=== PATIENT | female | born 1995 | race Caucasian/White ===

== ENCOUNTER 2020-09-21 08:00 | Outpatient (CLI) | payer OTHER ==
[2020-09-21 16:37] LABS: MUDS CUTOFF CONCENTRATIONS CUTOFF CONC BELOW:
[2020-09-21 17:06] LABS: AMPHETAMINE SCREEN,URINE NEGATIVE (NEGATIVE); BENZODIAZEPINES SCREEN, URINE NEGATIVE (NEGATIVE); BILIRUBIN,URINE NEGATIVE (NEGATIVE); COCAINE SCREEN URINE NEGATIVE (NEGATIVE); GLUCOSE, URINE (UA) NEGATIVE (NEGATIVE); KETONES,URINE (UA) NEGATIVE (NEGATIVE); LEUKOCYTE ESTERASE, URINE SMALL (NEGATIVE); METHADONE SCREEN, URINE NEGATIVE (NEGATIVE); METHAMPHETAMINES SCREEN, URINE NEGATIVE (NEGATIVE); NITRITE,URINE NEGATIVE (NEGATIVE); OCCULT BLOOD,URINE NEGATIVE (NEGATIVE); OPIATE SCREEN, URINE NEGATIVE (NEGATIVE); OXYCODONE SCREEN, URINE NEGATIVE (NEGATIVE); PH,URINE 7.5 PH (5.0-7.5); PROPOXYPHENE SCREEN, URINE NEGATIVE (NEGATIVE); PROTEIN,URINE NEGATIVE (NEGATIVE); TRICYCLIC ANTIDEPRESSANT,URINE NEGATIVE (NEGATIVE); UROBILINOGEN,URINE 0.2 (NORMAL) E.U./dL (NORMAL)
[2020-09-21 17:07] LABS: CLARITY,URINE CLEAR (CLEAR)
[2020-09-21 17:27] LABS: BACTERIA,URINE None Seen /HPF (None Seen); RBC,URINE 0-5 /HPF (0-5); SQUAMOUS EPITHELIAL CELL,UR MOD Squamous (<= Few)
== END 2020-09-21 23:59 | disposition home or self-care (01) ==
LOC: LAB.R 08:00
PROVIDERS: ATTEND Obstetrics & Gynecology
DX: Z32.01 Encounter for pregnancy test, result positive (principal)
CPT/HCPCS: 80306; 81001; 87086

== ENCOUNTER 2020-09-21 11:13 | Outpatient (CLI) | payer OTHER ==
--- NOTE | 2020-09-21 12:17 | Ultrasound Report ---
PROCEDURE: OB First Trimester INDICATIONS: POS PREG TEST, LATE CARE OUTSIDE/PRIOR DATING DATA: Last menstrual period (LMP): 07/03/2020. LMP-based estimated date of delivery (ESTELA): 04/09/2021. First dating scan (date and location): 09/21/2020. Estimated date of delivery (ESTELA) from first dating scan: 04/08/2021. TECHNIQUE: Real-time scanning was performed of the fetus and maternal pelvic organs, with image documentation. COMPARISON: None FINDINGS: Embryo: Mean gestational sac diameter is 5.5 cm corresponding to 11 weeks 3 days. [place]-rump length is 4.8 cm corresponding to 11 weeks 4 days. Composite ultrasound age is 11 weeks 4 days. Measurement variability in dating: +/- 4 weeks by LMP, +/- 7 days by mean sac diameter (use before 6 weeks gestation if crown-rump length not able to be measured), +/- 5 days by crown-rump length (6-12 weeks gestation). Maternal organs: The right ovary has a corpus luteal cyst measuring 1.9 x 1.9 x 1.8 cm. Limited image s through the kidneys demonstrate no hydronephrosis. The cervix is closed IMPRESSION: 1. Live intrauterine with a composite ultrasound age of 11 weeks 4 days. 2. A right corpus luteal cyst cyst measures 1.9 x 1.9 x 1.8 cm. Reviewed by: Seymour Damon on 09/21/2020 12:16 PM PST Approved by: Seymour Damon on 09/21/2020 12:16 PM PST Station ID: [id number]
== END 2020-09-21 11:14 | disposition home or self-care (01) ==
LOC: DI 11:13
PROVIDERS: ATTEND Obstetrics & Gynecology
DX: O34.81 Maternal care for other abnormalities of pelvic organs, first trimester (principal); N83.11 Corpus luteum cyst of right ovary; Z3A.11 11 weeks gestation of pregnancy

== ENCOUNTER 2020-09-28 08:00 | Outpatient (CLI) | payer OTHER | END 2020-09-28 08:01 | disposition home or self-care (01) | LOC: LAB.R 08:00 | PROVIDERS: ATTEND Nurse Practitioner Obstetrics & Gynecology | DX: O23.41 Unspecified infection of urinary tract in pregnancy, first trimester (principal) | CPT/HCPCS: 87086 ==

== ENCOUNTER 2020-10-17 08:00 | Outpatient (CLI) | payer OTHER ==
[2020-10-17 22:06] LABS: TRICHOMONAS VAGINALIS DNA NEGATIVE (NEGATIVE)
== END 2020-10-17 23:59 | disposition home or self-care (01) ==
LOC: LAB.R 08:00
PROVIDERS: ATTEND Nurse Practitioner Obstetrics & Gynecology
DX: Z11.3 Encounter for screening for infections with a predominantly sexual mode of transmission (principal)
CPT/HCPCS: 87491; 87591; 87661

== ENCOUNTER 2020-12-26 08:30 | Outpatient (CLI) | payer OTHER ==
--- NOTE | 2020-12-26 16:48 | Ultrasound Report ---
PROCEDURE: OB Detailed Eval INDICATIONS: SCREENING OUTSIDE/PRIOR DATING DATA: Last menstrual period (LMP): 07/03/2020. LMP-based estimated date of delivery (ESTELA): 04/09/2021. First dating scan (date and location): 09/21/2020. Estimated date of delivery (ESTELA) from first dating scan: 04/08/2021. TECHNIQUE: Real-time scanning was performed of the fetus, with image documentation and biometric measurements. Endovaginal scanning: No COMPARISON: Prior OB ultrasound dated 09/21/2020. FINDINGS: General: A single living intrauterine gestation is present. Presentation: Breech Placenta: Placental position is posterior, without previa. Amniotic fluid index: 17.5 cm, normal for gestational age. heart rate: 132 beats per minute. Maternal cervical canal: 5.0 cm long; normal length is 2.5 cm or more. biometrics: Biparietal diameter: 26 weeks Head circumference: 26 weeks 4 days Abdominal circumference: 25 weeks 4 days Femur length: 24 weeks 4 days Estimated gestational age from initial scan: 25 weeks 1 day Composite gestational age from present scan: 25 weeks 4 days Estimated weight and percentile: 7 98 g, 40th percentile Measurement variability in biometric dating: +/- 10 days from 12-20 weeks gestation, +/- 2 weeks from 20-30 weeks gestation, +/- 3 weeks at 30 weeks gestation or later. Anatomic survey: Neuro: Ventricles are normal at less than 10 mm. Cisterna magna is normal at 3-11 mm. Cerebellum i s normal in size and morphology. Nuchal skin fold: Normal at less than 6 mm between 14 and 20 weeks gestational age. Face: Nose and lips, facial profile are normal. Spine: No evidence for spina bifida. Heart: 4-chambered heart is present, with normal ventricular outflow tracts. Diaphragm: Diaphragm is intact. Stomach: Left-sided stomach is present. Kidneys: No hydronephrosis. Normal is less than 5 mm in 2nd trimester, less than 7 mm in 3rd trimester. Cord: 3 vessel cord has orthotopic insertion. Bladder: Normal in size. Extremities: All 4 extremities are visualized. IMPRESSION: Single living IUP redemonstrated and interval growth is normal with estimated weight 48 percent ile. Normal anatomic survey. Reviewed by: MACY Lloyd on 12/26/2020 4:47 PM PST Approved by: Carlito Reed MD on 12/26/2020 4:47 PM PST Station ID: [id number]
== END 2020-12-26 08:31 | disposition home or self-care (01) ==
LOC: DI 08:30
PROVIDERS: ATTEND Nurse Practitioner Obstetrics & Gynecology
DX: Z36.89 Encounter for other specified antenatal screening (principal)

== ENCOUNTER 2021-01-04 08:50 | Outpatient (CLI) | payer OTHER ==
[2021-01-04 09:58] LABS: HCT - HEMATOCRIT 31.8 % (37.0-47.0); HGB - HEMOGLOBIN 10.8 g/dL (12.0-16.0); MEAN CORPUSCULAR HEMOGLOBIN 32.6 pg (27.0-31.0); MEAN CORPUSCULAR VOLUME 96.1 fL (81.0-99.0); MEAN PLATELET VOLUME 9.2 fL (7.9-10.8); RED BLOOD COUNT 3.31 10^6/uL (4.20-5.40); RED CELL DISTRIBUTION WIDTH 12.6 % (12.0-15.0); WHITE BLOOD COUNT 7.5 x10^3/uL (4.8-10.8)
[2021-01-05 07:16] LABS: HIV AG/AB 4TH GEN NON-REACTIVE (NON-REACTIVE)
[2021-01-05 14:26] LABS: HEPATITIS C ANTIBODY NON-REACTIVE (NON-REACTIVE)
== END 2021-01-04 23:59 | disposition home or self-care (01) ==
LOC: LAB 08:50
PROVIDERS: ATTEND Advanced Practice Midwife
DX: Z34.90 Encounter for supervision of normal pregnancy, unspecified, unspecified trimester (principal); Z36.89 Encounter for other specified antenatal screening
CPT/HCPCS: 36415; 82950; 85027; 86803; 87389

== ENCOUNTER 2021-01-16 08:00 | Outpatient (CLI) | payer OTHER ==
[2021-01-16 20:58] LABS: BACTERIAL VAGINOSIS DNA POSITIVE (NEGATIVE); CANDIDA GLABRATA DNA NEGATIVE (NEGATIVE); CANDIDA GROUP DNA POSITIVE (NEGATIVE); CANDIDA KRUSEI DNA NEGATIVE (NEGATIVE); TRICHOMONAS VAGINALIS DNA NEGATIVE (NEGATIVE)
== END 2021-01-16 23:59 | disposition home or self-care (01) ==
LOC: LAB.R 08:00
PROVIDERS: ATTEND Nurse Practitioner Obstetrics & Gynecology
DX: N76.0 Acute vaginitis (principal)
CPT/HCPCS: 87661; 87801

== ENCOUNTER 2021-02-08 08:00 | Outpatient (CLI) | payer OTHER ==
[2021-02-08 23:22] LABS: BACTERIAL VAGINOSIS DNA NEGATIVE (NEGATIVE); CANDIDA GLABRATA DNA NEGATIVE (NEGATIVE); CANDIDA GROUP DNA POSITIVE (NEGATIVE); CANDIDA KRUSEI DNA NEGATIVE (NEGATIVE); TRICHOMONAS VAGINALIS DNA NEGATIVE (NEGATIVE)
== END 2021-02-08 23:59 | disposition home or self-care (01) ==
LOC: LAB.R 08:00
PROVIDERS: ATTEND Nurse Practitioner Obstetrics & Gynecology
DX: L29.8 Other pruritus (principal)
CPT/HCPCS: 87661; 87801

== ENCOUNTER 2021-02-13 11:44 | Outpatient (CLI) | payer OTHER ==
[2021-02-13 12:01] LABS: HCT - HEMATOCRIT 32.7 % (37.0-47.0); HGB - HEMOGLOBIN 11.3 g/dL (12.0-16.0); MEAN CORPUSCULAR HEMOGLOBIN 32.4 pg (27.0-31.0); MEAN CORPUSCULAR HGB CONC 34.6 g/dL (32.0-36.0); MEAN CORPUSCULAR VOLUME 93.7 fL (81.0-99.0); MEAN PLATELET VOLUME 9.4 fL (7.9-10.8); RED BLOOD COUNT 3.49 10^6/uL (4.20-5.40); RED CELL DISTRIBUTION WIDTH 12.9 % (12.0-15.0); WHITE BLOOD COUNT 8.5 x10^3/uL (4.8-10.8)
== END 2021-02-13 11:45 | disposition home or self-care (01) ==
LOC: LAB 11:44
PROVIDERS: ATTEND Nurse Practitioner Obstetrics & Gynecology
DX: Z01.84 Encounter for antibody response examination (principal); O99.019 Anemia complicating pregnancy, unspecified trimester; Z87.09 Personal history of other diseases of the respiratory system
CPT/HCPCS: 36415; 85027; 86769

== ENCOUNTER 2021-03-07 03:17 | Outpatient (CLI) | payer OTHER ==
[2021-03-07 03:33] VITALS: BP 114/78
--- NOTE | 2021-03-07 04:28 | Labor Flowsheet ---
Labor Flowsheet Datetime Report Generated by CPN: 03/07/2021 04:28 Datetime: 03/07/2021 03:32 VITAL SIGNS NBP Sys/Ronna/Mean (mmHg): 114 : 78 : 86 Pulse: 78
--- NOTE | 2021-03-07 07:15 | PROVIDER PROGRESS NOTE ---
- HPI Chief Complaint: Labor Current : Current EDU 04/09/21 Gestation 35 Weeks and 2 Days 2 Para 0 Vital Signs Temperature 37.1 C 03/07/21 03:31 Heart Rate 78 03/07/21 03:31 Respiratory Rate 19 03/07/21 03:31 Blood Pressure 114/78 03/07/21 03:31 O2 Saturation 100 03/07/21 03:31 Temperature 37.1 C 03/07/21 03:31 Heart Rate 78 03/07/21 03:31 Respiratory Rate 19 03/07/21 03:31 Blood Pressure 114/78 03/07/21 03:31 O2 Saturation 100 03/07/21 03:31 - Procedures OB Procedure Performed: NST Diagnosis/Indication for NST: Other NST Procedure: NST Procedure Start Date 03/07/21 Start Time 03:28 Stop Time 04:00 Vibroacoustic Stimulation Used No Patient States Movement Yes Service Date of procedure: 03/07/21 - Plan Plan: Jana is a 25yo @ 35.2wks gestation by LMP c/w 11.3wk U/S who presents [facility] with c/o contractions which began at approximately 10:00pm last night. She describes them as "a Richard horse in my back" with tight abdomen. She has not been timing them and she feels like maybe they are occurring every 10-20 minutes. She was able to get some sleep last night however woke up at 2:00am and was still experiencing this sensation and wanted to come in to be sure she is not in labor. She denies vaginal bleeding or leakage of fluid. She denies urinary symptoms and reports regular bowel movement yesterday afternoon. O: Normotensive NST performed 03/07/2021 NST read 03/07/2021 NST reactive. FHR baseline 130s, moderate variability, + accels, no decels Contractions palpate mild every 10-15 minutes with soft resting tone. Mild uterine irritability. Pt talking through contractions and when they are noted on tocometry she reports movement rather than pain. SVE closed/thick/high A: 25yo @ 35.2wks gestation by LMP c/w 11.3wk U/S False labor <37wks gestation P: Reviewed PTL precautions and warning s/sx and when to present. Pt has emergency contact number. Pt verbalized understanding and agrees to above plan. She denies further questions or concerns at this time. FINAL DIAGNOSIS: False labor <37weeks gestation
== END 2021-03-07 04:23 | disposition home or self-care (01) ==
LOC: WFO 03:17 → FBP 03:18 → WFO 04:23
PROVIDERS: ATTEND Nurse Practitioner Obstetrics & Gynecology
DX: O60.03 Preterm labor without delivery, third trimester (principal); Z3A.35 35 weeks gestation of pregnancy
CPT/HCPCS: 59025; 99213

== ENCOUNTER 2021-04-04 17:11 | Inpatient (IN) | payer OTHER ==
[2021-04-04 18:20] LABS: RUPTURE OF MEMBRANES PLUS POSITIVE (NEGATIVE)
[2021-04-04] MEDS ORDERED: AMPICILLIN 2 GM in SODIUM CHLORIDE 0.9% MINIBAG 100 ML IV ONE (19:19)
[2021-04-04] MEDS ORDERED: SODIUM CHLORIDE FLUSH 0.9% 10 ML SYRINGE IVP PRN (19:19)
[2021-04-04] MEDS ORDERED: OXYTOCIN/SODIUM CHLORIDE 500 ML IV PRN (19:19)
[2021-04-04] MEDS ORDERED: TRANEXAMIC ACID IN NACL 1,000 MG/100 ML BAG IV PRN (19:19)
[2021-04-04] MEDS ORDERED: LIDOCAINE-MPF 1% 30 ML VIAL ID PRN (19:19)
[2021-04-04] MEDS ORDERED: miSOPROStoL 200 MCG TABLET BC PRN (19:19)
[2021-04-04] MEDS ORDERED: OXYTOCIN 10 UNIT/ML VIAL IM PRN (19:19)
[2021-04-04] MEDS ORDERED: CARBOPROST TROMETHAMINE 250 MCG/ML AMP IM PRN (19:19)
[2021-04-04] MEDS ORDERED: METHYLERGONOVINE 0.2 MG/ML VIAL IM PRN (19:19)
[2021-04-04] MEDS ORDERED: OXYTOCIN/SODIUM CHLORIDE 500 ML IV SCH (19:25)
[2021-04-04 19:31] LABS: BASOPHILS % (AUTO) 0.3 %; EOSINOPHILS # (AUTO) 0.1 10^3/uL (0.0-0.7); EOSINOPHILS % (AUTO) 0.7 %; HCT - HEMATOCRIT 34.5 % (37.0-47.0); HGB - HEMOGLOBIN 11.7 g/dL (12.0-16.0); LYMPHOCYTES # (AUTO) 2.3 10^3/uL (1.5-3.5); LYMPHOCYTES % (AUTO) 25.8 %; MEAN CORPUSCULAR HEMOGLOBIN 31.2 pg (27.0-31.0); MEAN CORPUSCULAR HGB CONC 33.9 g/dL (32.0-36.0); MEAN PLATELET VOLUME 10.4 fL (7.9-10.8); MONOCYTES # (AUTO) 0.7 10^3/uL (0.0-1.0); MONOCYTES % (AUTO) 7.5 %; NEUTROPHILS # (AUTO) 5.8 10^3/uL (1.5-6.6); NEUTROPHILS % (AUTO) 65.1 %; PLT - PLATELET COUNT 234 10^3/uL (130-450); RED BLOOD COUNT 3.75 10^6/uL (4.20-5.40); RED CELL DISTRIBUTION WIDTH 13.6 % (12.0-15.0); WHITE BLOOD COUNT 8.9 x10^3/uL (4.8-10.8)
--- NOTE | 2021-04-04 20:04 | HISTORY & PHYSICAL EXAMINATION ---
Admit History - Visit Reason Visit Reason: Membranes rupture - : 2 Parity: 0 Premature: 0 Ectopic: 0 : 1 Care: positive: [facility] Risk/History: positive: None Complications This : positive: None Smoking Status: Never smoker - Mother's Labs Mother's Blood Type: positive: A Mother's RH: positive: Positive GBS: positive: Group B Strep Positive Rubella Status: positive: Immune Meds/Allgy - Allergies Allergies/Adverse Reactions: Allergies Allergy/AdvReac Type Severity Reaction Status Date / Time No Known Drug Allergies Allergy Verified 04/04/21 18:51 Review of Systems - Constitutional Constitutional: denies: Fatigue, Fever, Chills - Eyes Eyes: denies: Blurred vision, Spots in vision, Dipolpia - Cardiovascular Cariovascular: denies: Irregular heart rate, Palpitations, Chest pain, Edema - Respiratory Respiratory: denies: Cough, SOB at rest - Gastrointestinal Gastrointestinal: denies: Constipation, Diarrhea, Change in bowel habits - Integumentary Integumentary: denies: Rash, Pruritis - Neurological Neurological: denies: Headache Physical - Abdominal Exam Vital Signs: Temp Pulse Resp BP Pulse Ox 36.5 C 79 18 139/77 H 100 04/04/21 18:42 04/04/21 17:20 04/04/21 17:20 04/04/21 17:20 04/04/21 17:20 Contraction Frequency (min/apart): 5-8 Contraction Intensity: positive: Mild Uterine Resting Tone: positive: Soft - Monitoring Heart Rate Baseline: 120 Strip Review: positive: Category I - Presentation Presentation: positive: Vertex - Vaginal Exam Membranes: positive: Membranes ruptured Dilation (in cm): 1 Effacement (%): 50 Station: positive: -3 Cervical Position: positive: Posterior - Speculum Exam Speculum Exam Performed: positive: No Findings: positive: Other - Other Notes Labor Progress Note/Additional Text: HPI: Jana is a 25yo @ 39.2wks gestation by LMP c/w 11.3wk U/S who presents to [facility] with c/o vaginal leakage of clear fluid that occurred at 1400 this afternoon. She was instructed to present after calling the office and states it took her 2 hours to get home. Upon arrival she was noted to have moist pad and a ROM plus was collected and returned positive. She reports mild contractions intermittently for the past several days. She has not noted an increased in frequency or intensity of contractions after her water broke this afternoon. She denies vaginal bleeding and reports +FM. She is supported by her Jensen today. She has been a patient of [facility] through the duration of her which has remained uncomplicated with the exception of mild anemia for which she takes daily iron supplementation, and GBS positive in urine in the first trimester and she will be treated upon admission per protocol. She will be admitted to [facility] for active management of premature rupture of membranes at term. Dating criteria: LMP 07/03/2020 Initial ultrasound @ 11.3wks c/w LMP dating Serial exams - agree OB Hx: G1: 12/2019 SAB @6wks gestation G2: Current Medications: PNV; FeSO4 bid Allergies: NKDA PMHx: no significant Surgical Hx: none Social Hx: Never smoker. No ETOH or IVDA. Jensen Family Hx: HTN - MGM, MGF, PGM, PGF; Arthritis - MGM, PGM; Breast cancer - MGM; Stroke/CVA - PGF course: Initial U/S: 09/21/2020 @ 11.3wks c/w LMP dating A pos/Rubella immune VZV: immune Genetic testing: was considering, missed window due to being in [place] and not seeking care. FAS: WNL. Posterior placenta, no previa. 3VC. EFW 40%tile. Glucola - 87 Influenza: received at outside clinic COVID vaxx: #2 on 03/19/2021 TDAP- 01/16/2021 GBS POSITIVE via urine in first trimester - IPAP in labor indicated. HSV: denies in self and partner Breast pump Rx provided MOD: Anticipate ; Jensen. Boy??? [place] gender pp contraception: was previously using fertility awareness with abstinence and withdrawal- discussed risks of this method. Understands. pap: 2018-WNL per pt- denies hx abnormal. Physical Exam: Normocephalic, atraumatic Heart RRR w/o M/G/R Lungs CTAB Abdomen gravid, soft, nontender EFW 3300g FHR baseline 120, moderate variability, + accels no decels Contractions palpate mild every 4-8 minutes with soft resting tone. SVE 1/50/-3, posterior, medium. Vertex. ROM plus POSITIVE Bilateral LE's no edema Mood is good Assessment: 25yo @ 39.2wks gestation by LMP c/w 11.3wk U/S Premature rupture of membranes at term GBS positive FHR Category I Plan: Admit for active management. Initiate pitocin for induction of labor per protocol. Continuous monitoring. Initiate ampicillin for GBS prophylaxis per protocol. Jacuzzi PRN. Nitrous oxide PRN. Epidural per maternal request. Anticipate . Pt, , and labor RN verbalized understanding and agree to above plan. They deny further questions or concerns at this time.
[2021-04-05] MEDS: fentaNYL 100 MCG/2 ML VIAL IVP PRN ×3 (02:10→04:36)
[2021-04-05] MEDS: ONDANSETRON 4 MG/2 ML VIAL IVP PRN ×3 (02:10→18:09)
[2021-04-05] MEDS: LACTATED RINGERS 1,000 ML IV SCH ×2 (04:00→12:29)
[2021-04-05] MEDS ORDERED: ROPIVACAINE 0.2% 200 MG/100 ML BAG EP ONE (04:42)
[2021-04-05] MEDS: AMPICILLIN 1 GM in SODIUM CHLORIDE 0.9% MINIBAG 100 ML IV SCH ×4 (05:12→17:17)
[2021-04-05] MEDS ORDERED: ONDANSETRON 4 MG/2 ML VIAL IVP PRN (05:47)
[2021-04-05] MEDS ORDERED: diphenhydrAMINE INJ 50 MG/ML VIAL IVP PRN (05:47)
[2021-04-05] MEDS ORDERED: NALBUPHINE 10 MG/ML AMP IVP PRN (05:47)
[2021-04-05] MEDS ORDERED: NALOXONE 0.4 MG/ML VIAL IVP PRN (05:47)
[2021-04-05] MEDS ORDERED: ROPIVACAINE 0.2% 200 MG/100 ML BAG EP PRN (05:47)
[2021-04-05] MEDS ORDERED: METOCLOPRAMIDE 10 MG/2 ML VIAL IVP PRN (05:47)
--- NOTE | 2021-04-05 05:51 | ANESTHESIA ---
Pre-Anesthesia VS, & Labs - Diagnosis labor - Procedure labor epidural Vital Signs: Temp Pulse Resp BP Pulse Ox 36.5 C 79 18 139/77 H 100 04/04/21 18:42 04/04/21 17:20 04/04/21 17:20 04/04/21 17:20 04/04/21 17:20 Height: 5 ft 3 in Weight (kg): 71.214 kg Body Mass Index: 27.8 BMI Classification: Overweight - NPO Other (clears) - Is Patient ?: Yes - Lab Results Current Lab Results: Laboratory Tests 04/04/21 18:45: WBC 8.9, RBC 3.75 L, Hgb 11.7 L, Hct 34.5 L, MCV 92.0, MCH 31.2 H, MCHC 33.9, RDW 13.6, Plt Count 234, MPV 10.4, Neut # (Auto) 5.8, Lymph # (Auto) 2.3, Saunders # (Auto) 0.7, Eos # (Auto) 0.1, Baso # (Auto) 0.0, Absolute Nucleated RBC 0.00, Nucleated RBC % 0.0 04/04/21 18:45: Blood Type A POSITIVE, Antibody Screen NEGATIVE Fish Bones: 04/04/21 18:45 Home Medications and Allergies Active Medications Carboprost Tromethamine (Carboprost Tromethamine 250 Mcg/Ml Amp) 250 mcg IM Q15M PRN PRN Reason: Step 4: Hemorrhage protocol Stop: 04/09/21 19:20 Diphenhydramine HCl (Diphenhydramine Inj 50 Mg/Ml Vial) 12.5 - 25 mg IVP Q6HR PRN PRN Reason: ITCHING Ephedrine Sulfate (Ephedrine 50 Mg/Ml Vial) 5 mg IVP Q5M PRN PRN Reason: For SBP<100;give until SBP>100 Fentanyl (Fentanyl 100 Mcg/2 Ml Vial) 50 mcg IVP Q1HR PRN PRN Reason: PAIN Last Admin: 04/05/21 04:36 Dose: 50 mcg Documented by: Lactated Ringer's (Lr) 1,000 mls @ 150 mls/hr IV .Q6H40M KRISTIE Oxytocin/Sodium Chloride (Pitocin/Sodium Chloride) 500 mls @ 999 mls/hr IV PRN PRN; Protocol PRN Reason: POST- HEMORR PREVENTION Stop: 04/09/21 19:20 Tranexamic Acid (Tranexamic 1,000 Mg/100ml-Nacl) 1,000 mg in 100 mls @ 600 mls/hr IV .ONCE PRN PRN Reason: EBL >1200mL and within 3hr Stop: 04/09/21 19:20 Ampicillin Sodium 1 gm/ Sodium (Chloride) 100 mls @ 200 mls/hr IV Q4H KRISTIE Last Infusion: 04/05/21 05:44 Dose: Infused Documented by: Oxytocin/Sodium Chloride (Pitocin/Sodium Chloride) 500 mls @ 2 mls/hr IV TITR KRISTIE; Protocol Last Admin: 04/04/21 20:05 Dose: 2 milliunit/min, 2 mls/hr Documented by: Ropivacaine (Naropin 0.2%) 200 mg in 100 mls @ 0 mls/hr EP PRN PRN; Protocol PRN Reason: PAIN Lidocaine HCl (Lidocaine-Mpf 1% 30 Ml Vial) 30 ml ID .ONCE PRN PRN Reason: PERINEAL REPAIR Stop: 04/09/21 19:20 Methylergonovine Maleate (Methylergonovine 0.2 Mg/Ml Vial) 0.2 mg IM .ONCE PRN PRN Reason: Step 2: Hemorrhage protocol Stop: 04/09/21 19:20 Metoclopramide HCl (Metoclopramide 10 Mg/2 Ml Vial) 10 mg IVP Q6HR PRN PRN Reason: Nausea / Vomiting Misoprostol (Misoprostol 200 Mcg Tablet) 800 mcg BC .ONCE PRN PRN Reason: Step 3: Hemorrhage protocol Stop: 04/09/21 19:20 Nalbuphine HCl (Nalbuphine 10 Mg/Ml Amp) 2.5 - 5 mg IVP Q4H PRN PRN Reason: ITCHING Naloxone HCl (Naloxone 0.4 Mg/Ml Vial) 0.1 mg IVP Q2M PRN PRN Reason: RR<8 Ondansetron HCl (Ondansetron 4 Mg/2 Ml Vial) 4 mg IVP Q4H PRN PRN Reason: Nausea / Vomiting Last Admin: 04/05/21 02:10 Dose: 4 mg Documented by: Ondansetron HCl (Ondansetron 4 Mg/2 Ml Vial) 4 mg IVP Q6HR PRN PRN Reason: Nausea / Vomiting Oxytocin (Oxytocin 10 Unit/Ml Vial) 10 unit IM .ONCE PRN PRN Reason: Step one: If no IV access Stop: 04/09/21 19:20 Sodium Chloride (Sodium Chloride Flush 0.9% 10 Ml Syringe) 10 ml IVP PRN PRN PRN Reason: NEEDED PER PROVIDER ORDERS Sodium Chloride (Sodium Chloride Flush 0.9% 10 Ml Syringe) 10 ml IVP 0100,0900,1700 KRISTIE Allergies/Adverse Reactions: Allergies Allergy/AdvReac Type Severity Reaction Status Date / Time No Known Drug Allergies Allergy Verified 04/04/21 18:51 Anes History & Medical History - Anesthetic History Anesthesia Complications: reports: No previous complications - Medical History Smoking Status: Never smoker - Obstetrical History : 2 Parity: 0 Events: reports: None Complications: reports: None Exam General: Alert, Oriented x3 Dental: WNL Mouth Opening: Greater than 4 Fingerbreadths Neck Mobility: Normal Mallampati classification: II Thyromental Distance: greater than 6 cm Respiratory: Lungs clear Cardiovascular: Regular rate Mental/Cognitive Status: Alert/Oriented X3 Plan Anesthesia Type: Epidural Consent for Procedure(s) Verified and Reviewed: Yes Code Status: Attempt Resuscitation ASA classification: 2-Mild systemic disease Is this case an emergency?: No
[2021-04-05] MEDS: ePHEDrine 50 MG/ML VIAL IVP PRN ×2 (06:19→06:24)
--- NOTE | 2021-04-05 06:34 | PROVIDER PROGRESS NOTE ---
Labor Progress Note - Uterine Monitoring Uterine Monitoring Mode: positive: External toco Contraction Frequency (min/apart): 3-6 Contraction Intensity: positive: Moderate Uterine Resting Tone: positive: Soft - Monitoring Monitor Mode: positive: External ultrasound Heart Rate Baseline: 130 Heart Rate Variability: positive: Moderate (6-25 bmp) Accelerations: positive: Present, 15x15 Decelerations: positive: Early, Recurrent (>50% x20 min) Strip Review: positive: Category II - Labor Progress Note Labor Progress Note/Additional Text: S: Patient left side lying and feel much more comfortable now that she has her epidural. She has not slept at all throughout the night and is feeling very fatigued. Her Jensen is supportive at the bedside. O: FHR baseline 130, moderate variability, + accels, recurrent early decelerations. Previously intermittent variables and one late deceleration and secondarily pitocin was discontinued. SVE deferred at this time. A: 25yo @ 39.3wks gestation PROM x 15 hours GBS positive FHR Category II P: Continue active management. Repeat SVE in 1 hour and restart pitocin if SVE unchanged. Encouraged position changes in bed with peanut ball. Continuous monitoring. Continue ampicillin per protocol for GBS prophylaxis.
[2021-04-05] MEDS ORDERED: BENZOCAINE/MENTHOL LOZENGE MM PRN (09:50)
--- NOTE | 2021-04-05 13:33 | PROVIDER PROGRESS NOTE ---
Labor Progress Note - Uterine Monitoring Uterine Monitoring Mode: positive: External toco Contraction Frequency (min/apart): 130 Contraction Intensity: positive: Moderate Uterine Resting Tone: positive: Soft - Monitoring Monitor Mode: positive: External ultrasound Heart Rate Baseline: 130 Heart Rate Variability: positive: Moderate (6-25 bmp) Accelerations: positive: Present, 15x15 Decelerations: positive: None Strip Review: positive: Category I - Vaginal Exam Dilation (in cm): 6 Effacement (%): 90 Station: 0 Cervical Position: Midposition - Labor Progress Note Labor Progress Note/Additional Text: S: Feeling comfortable with her epidural. She is experiencing some left sided discomfort but overall feels her epidural is working well. She is slightly discouraged that she is not dilating more quickly. She was able to get some sleep and states she is feeling much better now. Her is supportive at the bedside. O: FHR baseline 150,+ accels, no decels Contractions palpate moderate every 2-4 minutes with soft resting tone. SVE 6/90/+1, vertex. Afebrile - PROM x 22.5hrs Pitocin @ 7mU/mL A: 25yo @ 39.3wks gestation Active labor GBS positive FHR Category I P: Continue active management with pitocin for induction of labor secondary to PROM with titration per protocol. Continue Ampicillin for GBS prophylaxis per protocol. Continuous monitoring Encouraged rotation in bed on peanut fall. Maintain epidural for adequate pain management. Anticipate . Pt verbalized understanding and agrees to above plan. She denies further questions or concerns at this time.
[2021-04-05] MEDS: SODIUM CHLORIDE FLUSH 0.9% 10 ML SYRINGE IVP SCH ×2 (14:26→18:09)
[2021-04-05] MEDS ORDERED: LIDOCAINE-PF 2% 10 ML AMP SUBQ ONE (14:43)
--- NOTE | 2021-04-05 14:55 | CONSULTATION NOTE ---
Consultation Report: Called to bedside by RN. Patient having left lower abdomen pain of 9/10. Comfortable otherwise. Lidocaine 2% bolus given, patient then rated pain 6/10. Discussed options of replacing epidural catheter, patient declined at this time. Provided education on labor progress and pain increasing d/t baby position.
--- NOTE | 2021-04-05 16:58 | CONSULTATION NOTE ---
Consultation Report: 1630 called to the bedside due to pt having one-sided epidural. Discussed replacing the epidural , benefits and risks. Pt requests d/c current epidural and replacing with new one. 1635 current epidural cath d/c'd , tip intact New epidural placed with ease at L3-L4, ESEQUIEL at 6, catheter secured at 12cm. Sterile technique maintained 1641 test dose negative. VSS 1645 VS remain stable. Epidural bolused with 10cc 0.2% Ropivacaine. Pt tolerated well. Pt claims relief and feels "much better". VS remain stable.
--- NOTE | 2021-04-05 16:59 | ANESTHESIA PROCEDURE NOTE ---
Anesthesia Epidural Template - Patient Report Patient Reports: positive: Pain controlled - Plan Plan: positive: Continue current management (See consult regarding replacing epidural.)
[2021-04-05] MEDS ORDERED: HYDROCORTISONE 1% CREAM 28 GM TUBE PR PRN (19:45)
[2021-04-05] MEDS ORDERED: WITCH HAZEL/GLYCERIN 1 PAD TOP PRN (19:45)
--- NOTE | 2021-04-05 19:58 | DELIVERY NOTE ---
Delivery Note - Labor Labor: positive: Induced by oxytocin - Infant Delivery Method Delivery Method: positive: Spontaneous vaginal delivery - Presentation Presentation: positive: Vertex, TONYA - right occiput anterior - Nuchal Cord Nuchal Cord: positive: None - Amniotic Fluid Description Amniotic Fluid Description: positive: Moderate meconium - Episiotomy Type Episiotomy Type: positive: None - Laceration Laceration: positive: None - Delivery Outcome Delivery Outcome: positive: Livebirth - : positive: Placed in direct skin contact with mother, Stimulated, Warmed, [place] used sex: positive: Male - Cord Cord: positive: 3 vessels - Placenta Placenta: positive: Intact, Spontaneous - Estimated Blood Loss Estimated Blood Loss (in cc): 300 - Post Delivery Events Post Delivery Events: positive: No post delivery events - Delivery Comments (Free Text/Narrative) Delivery Comments (Free Text/Narrative): Labor: This 25yo @ 39.3wks gestation presented on 04/04/2021 with c/o vaginal leakage of fluid which occurred on 04/04/2021 @ approximately 1500. ROM plus returned positive. Cervix was 1/50/-3 and vertex. She was induced with pitocin for induction of labor for a maximum infusion rate of 12mU/mL. Vaginal fluid was initially clear however throughout labor moderate meconium stained amniotic fluid was noted. FHR pattern demonstrated Category I pattern with intermittent periods of Category II but remained reassuring overall. Labor was complicated by prolonged rupture of membranes (28 hours ruptured) and patient remained afebrile. She received 5 total doses of Ampicillin for GBS prophylaxis per protocol. Epidural placed per maternal request. Patient progressed to c/c/+1 at 1814. physical therapy director ethical hacker called to present for delivery secondary to moderate meconium. : Normal of viable male on 04/05/2021 @ 1921. No nuchal cord. The was placed on maternal abdomen, stimulated, dried, and placed skin to skin. 's were 7/9 at 1 and 5 minutes respectively. Pitocin administered via IV for hemostasis. The umbilical cord was allowed to stop pulsating at which time it was doubly clamped by CNM and cut by FOB. 3VC. Cord blood was obtained. Fundal massage and gentle cord traction applied for active management of the third stage. Noted cord avulsion with gentle traction however placenta was expelled shortly after spontaneously with fundal massage. Placenta was noted to be intact and delivered at . The perineum, vagina, and cervix were inspected and found to be intact with a superficial vaginal floor abrasion which was hemostatic and left unrepaired. initiated. Family bonding well. Both mother and baby were left in stable condition.
[2021-04-05] MEDS: ACETAMINOPHEN 500 MG TABLET PO SCH (21:54)
[2021-04-05] MEDS: IBUPROFEN 800 MG TABLET PO SCH (22:43)
[2021-04-05] MEDS: DOCUSATE SODIUM 100 MG CAPSULE PO SCH (22:44)
[2021-04-06] MEDS: IBUPROFEN 800 MG TABLET PO SCH ×2 (04:45→10:47)
[2021-04-06] MEDS: ACETAMINOPHEN 500 MG TABLET PO SCH (05:52)
[2021-04-06 09:00] VITALS: BP 126/68
--- NOTE | 2021-04-06 09:00 | DISCHARGE SUMMARY ---
Discharge Summary Condition at Discharge: Good - HPI History of Present Illness: Admit Date 04/04/2021 Discharge Date 04/06/2021 Diagnosis on Admission: 1. A 25yo at 39.2 week intrauterine 2. PROM 3. GBS Positive- Urine Diagnosis on Discharge 1. A 25yo s/p spontaneous vaginal delivery on 04/05/2021 2. Normal recovery Brief History: She is a patient at [facility] who presented on 04/04/2021 with complaints of contractions. The patient was found to contract every 4 to 8 minutes and her cervix was 1cm dilated, 50%effaced, and -3 station. She was adequately treated for GBS. She as augmented with pitocin and spontaneously delivered a viable male named Jensen Gonzalez. Apgars were 7 and 9- and 1 and 5 minutes respectively. EBL 300 mL. The patient was found to be intact. She has been doing well in her course- baby was sent to [facility] and she would like to be discharged at 12 hours . She is ambulating and tolerating a regular diet. She is urinating without difficulty and her lochia is normal. Her pain is well controlled with oral medications. She will be discharged home today on day #1 without need for prescriptions. She intends to follow up with Midwifery at [facility] in 1, and 6 weeks for routine visit. She has been given precautions to call if she has any worsening fevers, chills, abdominal pain, increased bleeding or foul smelling vaginal lochia. - ALLERGIES Allergies/Adverse Reactions: Allergies Allergy/AdvReac Type Severity Reaction Status Date / Time No Known Drug Allergies Allergy Verified 04/04/21 18:51 - LABS Result Diagrams: 04/04/21 18:45
--- NOTE | 2021-04-06 09:01 | Discharge Plan ---
Discharge Plan Problem Reviewed?: Yes Disposition: Home, Self Care Condition: Good Diet: Regular No Smoking: If you smoke, Please STOP! Call for help. Follow-up with: Bernice De Paz CNM, CANDY [Provider Admit Priv/Credential] -
--- NOTE | 2021-04-06 09:03 | PROVIDER PROGRESS NOTE ---
Subjective - Prog Note Date Prog Note Date: 04/06/21 Prog Note Time: 09:01 - Subjective Pt reports feeling: Improved Subjective: Jana is resting comfortably in bed. She reports her bleeding as decreased through the night, and her pain as well managed with PO pain meds. She feels that her two epidural sites are tender, and requests an inspection. Baby is at [facility] and she desires discharge to go see him. She is pumping breastmilk and getting a small amount of colostrum out. O: Fundus firm Lochia rubra No redness or heat noted at epidural sites, however small amount of edema is noted A: 25yo s/p PP day 1 Normal recovery Normal epidural site healing Expressing colostrum at regular intervals P: Discharge to home today Objective - Vital Signs/Intake & Output Vital Signs: Vital Signs x48h Temp Pulse Resp BP Pulse Ox 04/06/21 08:59 36.3 C L 86 18 126/68 99 04/06/21 04:29 36.7 C 73 17 94/62 100 Intake & Output: Intake & Output 04/03/21 04/04/21 04/05/21 04/06/21 23:59 23:59 23:59 23:59 Intake Total 3440.000 240 Output Total 2750 650 Balance 690.000 -410 - Lab Results Fish Bones: 04/04/21 18:45
[2021-04-06] MEDS: DOCUSATE SODIUM 100 MG CAPSULE PO SCH (09:49)
--- NOTE | 2021-04-06 13:26 | Labor Flowsheet ---
Labor Flowsheet Datetime Report Generated by CPN: 04/06/2021 13:26 Datetime: 04/06/2021 08:51 VITAL SIGNS NBP Sys/Ronna/Mean (mmHg): 126 : 68 : 83 Pulse: 86 Datetime: 04/06/2021 00:51 Membranes Ruptured Date/Time: 04/04/2021 15:00 Membranes Rupture Method: Spontaneous Amniotic Fluid Color: Heavy Meconium Amniotic Fluid Amount: Moderate Amniotic Fluid Odor: None Datetime: 04/05/2021 21:30 PAIN Pain Scale: 3 Pain Presence: Constant Pain Type: Ache Pain Location: Back Pain Relief Measures: Pain Medication Given; Comfort Measures Datetime: 04/05/2021 20:31 Respirations: 18 Datetime: 04/05/2021 19:34 Temperature (C): 36.9 Datetime: 04/05/2021 19:30 Stage of : Recovery Datetime: 04/05/2021 19:21 Stage 2 Comments: delivery of Datetime: 04/05/2021 19:00 UTERINE ACTIVITY Monitor Mode: External Frequency (min): 2-4 Quality: Strong Duration (sec): 50-120 Pattern: Normal: <= 5 Contractions in 10 Minutes Resting Tone (Palpate): Relaxed ASSESSMENT A Monitor Mode: External US FHR Baseline Rate : 150 FHR Baseline Changes: No Baseline Change Variability: Moderate 6-25 bpm Accelerations: 15X15 Decelerations: None Category: Category I Oxygen Method: Room Air Datetime: 04/05/2021 18:56 LaborFlag: Labor Datetime: 04/05/2021 18:50 Pushing Position: Pushing with Contractions; Pushing Left Side Pushing Progress: Descent with Pushing Datetime: 04/05/2021 18:45 Contraction Comments: pushing with each ctx Datetime: 04/05/2021 18:30 Comments: 140 in between pushing. audble decleraion heard while pushing with recovery Datetime: 04/05/2021 18:20 I/O Interventions: Miller Discontinued Datetime: 04/05/2021 18:17 Patient Position/Activity: Left Lateral Datetime: 04/05/2021 18:14 VAGINAL EXAM Dilatation (cm): 10.0 Effacement (%): 100 Station: 1 Exam by: evette wyatt cnm Datetime: 04/05/2021 18:10 SpO2 (%): 100 Datetime: 04/05/2021 17:59 Monitor Interventions for UA: Shelbina Adjusted Datetime: 04/05/2021 17:34 Pain Coping: Talking Through Contractions Pain Assessment Comments: playing cards with , feeling urge to push off and on Datetime: 04/05/2021 17:25 Antibiotics: Ampicillin IV 1 Gm Datetime: 04/05/2021 17:05 STAGE 2 Pushing: Urge to Push Datetime: 04/05/2021 17:00 Anesthesia Level Check: T9 Datetime: 04/05/2021 16:46 Epidural Procedure Other: Pump Started Datetime: 04/05/2021 16:41 Epidural Procedure: Test Dose Datetime: 04/05/2021 16:35 Epidural Positioning: Sitting Anesthesia Comments: epidural out tip intact Datetime: 04/05/2021 16:33 PATIENT CARE IV/Blood Work: IV Bolus Started Datetime: 04/05/2021 16:20 Communication Comments: evette wyatt cnm at bedside Datetime: 04/05/2021 16:17 Cervix, Consistency: Soft Datetime: 04/05/2021 16:15 COMMUNICATION Communication: Provider at Bedside Datetime: 04/05/2021 14:54 Patient Care Comments: peanut ball between legs Datetime: 04/05/2021 13:34 MEDICATIONS Pitocin (milliunits): Increased to @ 7 Datetime: 04/05/2021 13:00 Vaginal Bleeding: Normal Show Cervix, Position: Midposition Datetime: 04/05/2021 12:40 Medication Comments: epidural bag changed. Datetime: 04/05/2021 11:31 Temperature Route: Oral Datetime: 04/05/2021 10:30 Monitor Interventions for FHR: Ultrasound Adjusted Datetime: 04/05/2021 09:54 Notification Reason: Labor Status Datetime: 04/05/2021 07:45 Actions for Decelerations: Other Datetime: 04/05/2021 06:24 Magnesium/Antihypertensives: Ephedrine IV (mg) @ 5 Datetime: 04/05/2021 06:20 Antiemetics/Antacids: Zofran (mg) @ 4 Datetime: 04/05/2021 05:13 ANESTHESIA Anesthesia Plans: Local Datetime: 04/05/2021 05:01 PROCEDURE TIME OUT Procedure Verify: Accurate Procedure Consent Form Datetime: 04/05/2021 04:36 Analgesics/Sedatives: Fentanyl (mcg) @ 50 Datetime: 04/05/2021 02:36 Hygiene: Underpad Changed Datetime: 04/04/2021 20:05 Pitocin Checklist: At Least 1 Acceleration of 15 bpm x 15 Seconds in 30 Minutes or Adequate Variabi lity; No More than 1 Late Deceleration Occurred in Past 30 Minutes; No More than 2 Variable Decelerat ions > 60 Seconds in Duration and decreasing >60 bpm in 30 minutes; No More than 5 Uterine Contractio ns in 10 Minutes for any 20 Minute Interval; Uterus Palpates Soft between Contractions
== END 2021-04-06 11:15 | disposition home or self-care (01) | DRG 807 ==
LOC: WFO 17:11 → FBP 17:13 → WFO 19:27
PROVIDERS: ADMIT Nurse Practitioner Obstetrics & Gynecology; ATTEND Advanced Practice Midwife
PROC: 3E033VJ Introduction of Other Hormone into Peripheral Vein, Percutaneous Approach (ICD-10-PCS; principal; 2021-04-04)
PROC: 10E0XZZ Delivery of Products of Conception, External Approach (ICD-10-PCS; 2021-04-05)
DX: O42.12 Full-term premature rupture of membranes, onset of labor more than 24 hours following rupture (principal); Z37.0 Single live birth; O77.0 Labor and delivery complicated by meconium in amniotic fluid; O99.824 Streptococcus B carrier state complicating childbirth; Z3A.39 39 weeks gestation of pregnancy
CPT/HCPCS: 36415; 59025; 84112; 85025; 86850; 86900; 86901; 99213; A9270; J2210; J7120

== ENCOUNTER 2021-12-31 08:38 | Outpatient (CLI) | payer OTHER ==
[2021-12-31 12:13] LABS: BASOPHILS % (AUTO) 0.6 %; EOSINOPHILS # (AUTO) 0.2 10^3/uL (0.0-0.7); EOSINOPHILS % (AUTO) 3.2 %; HCT - HEMATOCRIT 42.3 % (37.0-47.0); HGB - HEMOGLOBIN 14.2 g/dL (12.0-16.0); LYMPHOCYTES # (AUTO) 2.1 10^3/uL (1.5-3.5); LYMPHOCYTES % (AUTO) 40.2 %; MEAN CORPUSCULAR HEMOGLOBIN 30.3 pg (27.0-31.0); MEAN CORPUSCULAR HGB CONC 33.6 g/dL (32.0-36.0); MEAN CORPUSCULAR VOLUME 90.4 fL (81.0-99.0); MONOCYTES # (AUTO) 0.5 10^3/uL (0.0-1.0); MONOCYTES % (AUTO) 8.8 %; NEUTROPHILS # (AUTO) 2.5 10^3/uL (1.5-6.6); PLT - PLATELET COUNT 230 10^3/uL (130-450); RED BLOOD COUNT 4.68 10^6/uL (4.20-5.40); RED CELL DISTRIBUTION WIDTH 12.4 % (12.0-15.0); WHITE BLOOD COUNT 5.3 x10^3/uL (4.8-10.8)
[2021-12-31 12:22] LABS: ALBUMIN 4.4 g/dL (3.2-5.5); ALBUMIN/GLOBULIN RATIO 1.3 (1.0-2.2); BILIRUBIN,TOTAL 1.2 mg/dL (0.2-1.0); CALCIUM 9.3 mg/dL (8.5-10.3); CREATININE 0.7 mg/dL (0.4-1.0); TOTAL PROTEIN 7.7 g/dL (6.7-8.2)
[2021-12-31 12:27] LABS: THYROID STIMULATING HORMONE 1.21 uIU/mL (0.34-5.60)
== END 2021-12-31 08:39 | disposition home or self-care (01) ==
LOC: LAB.N 08:38
PROVIDERS: ATTEND Registered Nurse
DX: Z13.228 Encounter for screening for other metabolic disorders (principal); Z13.29 Encounter for screening for other suspected endocrine disorder; Z13.0 Encounter for screening for diseases of the blood and blood-forming organs and certain disorders involving the immune mechanism
CPT/HCPCS: 36415; 80053; 84443; 85025

== ENCOUNTER 2022-10-22 08:00 | Outpatient (CLI) | payer OTHER ==
[2022-10-22 21:47] LABS: BACTERIAL VAGINOSIS DNA POSITIVE (NEGATIVE); CANDIDA GLABRATA DNA NEGATIVE (NEGATIVE); CANDIDA GROUP DNA POSITIVE (NEGATIVE); CANDIDA KRUSEI DNA NEGATIVE (NEGATIVE); TRICHOMONAS VAGINALIS DNA NEGATIVE (NEGATIVE)
== END 2022-10-22 23:59 | disposition home or self-care (01) ==
LOC: LAB.N 08:00
PROVIDERS: ATTEND Family Medicine
DX: N89.8 Other specified noninflammatory disorders of vagina (principal); R30.0 Dysuria
CPT/HCPCS: 81514; 87086

== ENCOUNTER 2023-03-02 10:05 | Outpatient (CLI) | payer OTHER ==
[2023-03-02 18:09] LABS: BASOPHILS % (AUTO) 0.4 %; EOSINOPHILS # (AUTO) 0.1 10^3/uL (0.0-0.7); HCT - HEMATOCRIT 40.6 % (37.0-47.0); HGB - HEMOGLOBIN 13.3 g/dL (12.0-16.0); LYMPHOCYTES % (AUTO) 25.8 %; MEAN CORPUSCULAR HGB CONC 32.8 g/dL (32.0-36.0); MEAN CORPUSCULAR VOLUME 91.6 fL (81.0-99.0); MEAN PLATELET VOLUME 9.6 fL (7.9-10.8); MONOCYTES # (AUTO) 0.5 10^3/uL (0.0-1.0); NEUTROPHILS # (AUTO) 5.2 10^3/uL (1.5-6.6); NEUTROPHILS % (AUTO) 66.4 %; PLT - PLATELET COUNT 251 10^3/uL (130-450); RED BLOOD COUNT 4.43 10^6/uL (4.20-5.40); RED CELL DISTRIBUTION WIDTH 12.6 % (12.0-15.0); WHITE BLOOD COUNT 7.9 x10^3/uL (4.8-10.8)
[2023-03-04 03:10] LABS: HBsAG SCREEN Negative (Negative)
[2023-03-04 04:09] LABS: RPR Non Reactive (Non Reactive)
[2023-03-04 10:10] LABS: VARICELLA-ZOSTER AB IGG 290 index (Immune >165)
[2023-03-05 00:08] LABS: HCV AB Non Reactive (Non Reactive); HIV SCREEN 4TH GENERATION Non Reactive (Non Reactive)
== END 2023-03-02 10:06 | disposition home or self-care (01) ==
LOC: LAB.N 10:05
PROVIDERS: ATTEND Nurse Practitioner Obstetrics & Gynecology
DX: Z36.89 Encounter for other specified antenatal screening (principal)
CPT/HCPCS: 36415; 85025; 86592; 86762; 86787; 86803; 86850; 86900; 86901; 87340; 87389

== ENCOUNTER 2023-05-17 11:05 | Outpatient (CLI) | payer OTHER ==
--- NOTE | 2023-05-17 12:30 | Ultrasound Report ---
PROCEDURE: OB Detailed Eval INDICATIONS: SUPERVISION OF OUTSIDE/PRIOR DATING DATA: Last menstrual period (LMP): 12/29/2022. LMP-based estimated date of delivery (ESTELA): 10/05/2023. First dating scan (date and location): 02/24/2023. Estimated date of delivery (ESTELA) from first dating scan: 10/10/2023. The below data below was generated using the clinical ESTELA of 10/10/2023 TECHNIQUE: Real-time scanning was performed of the fetus, with image documentation and biometric measurements. Endovaginal scanning: Not performed COMPARISON: None. FINDINGS: General: A single living intrauterine gestation is present. Presentation: Breech Placenta: Placental position is anterior, without previa. Amniotic fluid index: 13.2 cm, within normal limits for gestational age. heart rate: 150 beats per minute. Maternal cervical canal: 4.96 cm long; normal length is 2.5 cm or more. biometrics: Biparietal diameter: 4.56 cm, 19 weeks and 5 days Head circumference: 17.77 cm, 20 weeks and 2 days Abdominal circumference: 16.01 cm, 21 weeks and 1 day Femur length: 3.36 cm, 20 weeks and 4 days Estimated gestational age from initial scan: 19 weeks and 1 day Composite gestational age from present scan: 20 weeks and 0 days Estimated weight and percentile: 375 g which [address] the fetus over the 99.5th percentile Measurement variability in biometric dating: +/- 10 days from 12-20 weeks gestation, +/- 2 weeks from 20-30 weeks gestation, +/- 3 weeks at 30 weeks gestation or later. Anatomic survey: Neuro: Ventricles are normal at less than 10 mm. Cisterna magna is normal at 3-11 mm. Cerebellum i s normal in size and morphology. Nuchal skin fold: Normal at less than 6 mm between 14 and 20 weeks gestational age. Face: Nose and lips, facial profile are normal. Spine: No evidence for spina bifida. Heart: 4-chambered heart is present, with normal ventricular outflow tracts. Diaphragm: Diaphragm is intact. Stomach: Left-sided stomach is present. Kidneys: No hydronephrosis. Normal is less than 5 mm in 2nd trimester, less than 7 mm in 3rd trimester. Cord: 3 vessel cord has orthotopic insertion. Bladder: Normal in size. Extremities: All 4 extremities are visualized. IMPRESSION: 1. Single living intrauterine gestation with estimated sonographic gestational age of approximately 2 0 weeks and 0 days versus approximately 19 weeks and 1 day based off initial ultrasound. Measurements remain concordant. Estimated weight of approximately [address] the fetus greater than the 99.5th % for gestational age. 2. Normal routine anatomy screening survey. Reviewed by: Antwon Bell MD on 05/17/2023 11:29 AM BELTRAN Approved by: Antwon Bell MD on 05/17/2023 11:29 AM BELTRAN Station ID: [id number]
== END 2023-05-17 11:06 | disposition home or self-care (01) ==
LOC: DI 11:05
PROVIDERS: ATTEND Nurse Practitioner Obstetrics & Gynecology
DX: Z34.02 Encounter for supervision of normal first pregnancy, second trimester (principal); Z36.89 Encounter for other specified antenatal screening

== ENCOUNTER 2023-07-06 08:12 | Outpatient (CLI) | payer OTHER ==
[2023-07-06 09:26] LABS: BASOPHILS % (AUTO) 0.3 %; EOSINOPHILS # (AUTO) 0.1 10^3/uL (0.0-0.7); EOSINOPHILS % (AUTO) 0.9 %; HCT - HEMATOCRIT 34.6 % (37.0-47.0); HGB - HEMOGLOBIN 11.5 g/dL (12.0-16.0); LYMPHOCYTES # (AUTO) 1.8 10^3/uL (1.5-3.5); LYMPHOCYTES % (AUTO) 25.4 %; MEAN CORPUSCULAR HEMOGLOBIN 31.3 pg (27.0-31.0); MEAN CORPUSCULAR HGB CONC 33.2 g/dL (32.0-36.0); MEAN PLATELET VOLUME 9.3 fL (7.9-10.8); MONOCYTES # (AUTO) 0.5 10^3/uL (0.0-1.0); MONOCYTES % (AUTO) 7.3 %; NEUTROPHILS # (AUTO) 4.6 10^3/uL (1.5-6.6); NEUTROPHILS % (AUTO) 65.7 %; PLT - PLATELET COUNT 213 10^3/uL (130-450); RED BLOOD COUNT 3.68 10^6/uL (4.20-5.40); RED CELL DISTRIBUTION WIDTH 12.4 % (12.0-15.0)
== END 2023-07-06 08:13 | disposition home or self-care (01) ==
LOC: LAB 08:12
PROVIDERS: ATTEND Nurse Practitioner Obstetrics & Gynecology
DX: Z36.9 Encounter for antenatal screening, unspecified (principal)
CPT/HCPCS: 36415; 82950; 85025

== ENCOUNTER 2023-09-16 07:21 | Outpatient (CLI) | payer OTHER ==
[2023-09-16 08:43] VITALS: BP 120/63
--- NOTE | 2023-09-29 17:43 | PROVIDER PROGRESS NOTE ---
- HPI Chief Complaint: Labor Check Current : Current EDU 10/05/23 Gestation 37 Weeks and 2 Days 3 Para 1 Vital Signs Temperature 36.9 C 09/16/23 08:19 Heart Rate 98 09/16/23 08:19 Respiratory Rate 18 09/16/23 08:19 Blood Pressure 120/63 09/16/23 08:19 Temperature 36.9 C 09/16/23 08:19 Heart Rate 98 09/16/23 08:19 Respiratory Rate 18 09/16/23 08:19 Blood Pressure 120/63 09/16/23 08:19 O2 Saturation If not protocol: Oxygen Flow, liters/minute - Procedures OB Procedure Performed: NST NST Procedure: NST Procedure Start Date 09/16/23 Start Time 07:30 Stop Time 07:55 Vibroacoustic Stimulation Used No Patient States Movement Yes - Plan Plan: Jana presents to [facility] with c/o contractions. She reports her contractions have increased in frequency and intensity since early this morning. She is supported by her Jensen. NST reactive. FHR baseline 140s, moderate variability, + accels, no decels 1 contraction appreciated via tocometry in a 20 minute span of time SVE 1/thick/high, posterior and vertex Pt released home with precautions. Pt has emergency contact information. FINAL DIAGNOSIS: False labor, full term gestation
== END 2023-09-16 08:20 | disposition home or self-care (01) ==
LOC: WFO 07:21 → FBP 07:23 → WFO 08:20
PROVIDERS: ATTEND Nurse Practitioner Obstetrics & Gynecology
DX: O47.1 False labor at or after 37 completed weeks of gestation (principal); Z3A.37 37 weeks gestation of pregnancy
CPT/HCPCS: 59025; 99213